=== PATIENT | female | born 1995 | race Caucasian/White ===

== ENCOUNTER → 2017-08-16 | Emergency (ER) | payer OTHER ==
[~2017-08-16] VITALS: Ht 157.5 cm; Wt 52.2 kg
[~2017-08-16] MED LIST: CEFUROXIME500 MG PO; KETO10TA2 PO
== END | disposition home or self-care (01) ==
LOC: ER 21:47
DX: N39.0 Urinary tract infection, site not specified (principal); R10.2 Pelvic and perineal pain

== ENCOUNTER 2018-01-10 15:42 | Emergency (ER) | payer OTHER ==
[~2018-01-10] VITALS: Ht 157.5 cm; Wt 52.2 kg
[2018-01-10] MEDS ORDERED: FOLIC ACID1 MG (15:52)
== END 2018-01-10 19:02 | disposition home or self-care (01) ==
LOC: ER 15:42
DX: O21.0 Mild hyperemesis gravidarum (principal); O98.511 Other viral diseases complicating pregnancy, first trimester; B34.9 Viral infection, unspecified; Z34.01 Encounter for supervision of normal first pregnancy, first trimester

== ENCOUNTER 2018-02-12 00:48 | Emergency (ER) | payer OTHER ==
[~2018-02-12] VITALS: Ht 157.5 cm; Wt 50.8 kg
[~2018-02-12 00:48] MED LIST changes: +FOLIC ACID1 MG
[2018-02-12] MEDS ORDERED: ZOFRAN4 MG (01:03)
[2018-02-12] MEDS ORDERED: ZANTAC300 MG (01:03)
[2018-02-12] MEDS ORDERED: CEFTIN250 MG/5 M PO (05:38)
[2018-02-12] MEDS ORDERED: PEPCID40 MG PO (05:38)
== END 2018-02-12 05:56 | disposition home or self-care (01) ==
LOC: ER 00:48
DX: O21.0 Mild hyperemesis gravidarum (principal); O23.41 Unspecified infection of urinary tract in pregnancy, first trimester; Z34.01 Encounter for supervision of normal first pregnancy, first trimester; Z3A.12 12 weeks gestation of pregnancy

== ENCOUNTER 2020-04-25 16:13 | Emergency (ER) | payer OTHER ==
[~2020-04-25] VITALS: Ht 157.5 cm; Wt 54.4 kg
[~2020-04-25 16:13] MED LIST changes: +CEFTIN250 MG/5 M PO; +PEPCID40 MG PO; +ZANTAC300 MG; +ZOFRAN4 MG
== END 2020-04-25 20:42 | disposition home or self-care (01) ==
LOC: ER 16:13 → EMR PED 16:33 → ER 20:42
DX: N91.0 Primary amenorrhea (principal); M25.561 Pain in right knee; M41.87 Other forms of scoliosis, lumbosacral region